=== PATIENT | male | born 1950 | race Caucasian/White ===

== ENCOUNTER 2019-01-11 11:05 | Day surgery (SDC) | payer MEDICARE, MEDICAID ==
[2019-01-11] VITALS (14 sets, daily range): BP systolic 107–162; BP diastolic 65–109
[~2019-01-11] VITALS: Ht 172.7 cm; Wt 125.2 kg
[~2019-01-11 11:05] MED LIST: ATOR40TA PO; BUDE10.22 INH; IBUP-1984 PO; MULT-66 PO; TERA2CAP4 PO
[2019-01-11] MEDS ORDERED: nitroGLYCERIN 0.4mg SUBLingual tab SL PRN (11:25)
[2019-01-11] MEDS ORDERED: normal saline 1,000 ML IV SCH (11:30)
[2019-01-11] MEDS ORDERED: diphenhydrAMINE 25mg capsule PO PRN (11:30)
[2019-01-11] MEDS ORDERED: LORazepam 0.5 MG tablet PO PRN (11:30)
[2019-01-11] MEDS ORDERED: TRAM50TA2 PO (12:13)
[2019-01-11] MEDS ORDERED: APIX5TAB3 PO (12:13)
[2019-01-11] MEDS ORDERED: OMEP20CA10 PO (12:13)
[2019-01-11] MEDS ORDERED: CARV-50 PO (12:13)
[2019-01-11] MEDS ORDERED: DIGO125T PO (12:13)
[2019-01-11] MEDS ORDERED: AMIO200T40 PO (12:13)
[2019-01-11] MEDS ORDERED: META-25 PO (12:13)
[2019-01-11 12:20] LABS: BASOPHILS # (AUTO) 0.1 X10'3 (0-0.2); BASOPHILS % (AUTO) 0.8 % (0-1); EOSINOPHILS # (AUTO) 0.1 X10'3 (0-0.9); EOSINOPHILS % (AUTO) 1.7 % (0-6); HEMATOCRIT 47.8 % (42.0-52.0); HEMOGLOBIN 15.7 g/dl (14.0-17.9); LYMPHOCYTES # (AUTO) 1.2 X10'3 (1.1-4.8); LYMPHOCYTES % (AUTO) 15.4 % (21-51); MEAN CORPUSCULAR HEMOGLOBIN 29.5 PG (27.0-31.0); MEAN CORPUSCULAR HGB CONC 32.9 g/dL (33.0-36.5); MEAN CORPUSCULAR VOLUME 89.6 FL (78-98); MEAN PLATELET VOLUME 8.1 FL (7.4-10.4); MONOCYTES # (AUTO) 0.6 X10'3 (0-0.9); MONOCYTES % (AUTO) 7.9 % (2-12); NEUTROPHILS # (AUTO) 5.7 X10'3 (1.8-7.7); NEUTROPHILS % (AUTO) 74.2 % (42-75); PLATELET COUNT 235 X10'3 (140-440); RED BLOOD COUNT 5.34 X10'6 (4.70-6.10); RED CELL DISTRIBUTION WIDTH 16.7 % (11.5-14.5); WHITE BLOOD COUNT 7.7 X10'3 (4.5-11.0)
[2019-01-11 12:35] LABS: ALBUMIN 3.6 G/DL (3.4-5.0); ANION GAP 9 (8-16); BLOOD UREA NITROGEN 17 MG/DL (7-18); BUN/CREATININE RATIO 23.3 (5.4-32.0); CALCIUM 9.5 MG/DL (8.5-10.1); CHLORIDE 103 MMOL/L (99-107); CREATININE 0.73 MG/DL (0.60-1.10); GLUCOSE 93 MG/DL (70-104); POTASSIUM 4.6 MMOL/L (3.5-5.1); SODIUM 140 MMOL/L (135-145); TOTAL CARBON DIOXIDE 27.8 MMOL/L (24-32); eGFR > 90 ML/MIN
[2019-01-11 12:44] LABS: INR 1.2 INR; PARTIAL THROMBOPLASTIN TIME 31 SECONDS (22-32); PROTHROMBIN TIME 11.6 SECONDS (9.0-12.0)
[2019-01-11] MEDS ORDERED: iohexol 350 MG/ML 50ML vial IV ONE (13:57)
[2019-01-11] MEDS ORDERED: LIDOcaine 1% (10mg/ml)w/preservative injection 20ml MDV ONE (13:57)
[2019-01-11] MEDS ORDERED: iohexol 350MG/ML 100ml bottle IV ONE (13:57)
[2019-01-11] MEDS ORDERED: fentaNYL/PF 50MCG/1 ML 2ML syringe ONE (13:57)
[2019-01-11] MEDS ORDERED: midazolam 2 mg/2 ml injection ONE (13:57)
[2019-01-11] MEDS ORDERED: HYDROcodone/acetaminophen 5mg/325mg tablet PO PRN (16:05)
[2019-01-11] MEDS ORDERED: HYDROcodone/acetaminophen 10/325mg tab PO PRN (16:05)
[2019-01-11] MEDS ORDERED: OXAZEpam 15mg capsule PO PRN (16:05)
[2019-01-11] MEDS ORDERED: ondansetron/PF 4mg/2ml inj IV PRN (16:05)
[2019-01-11] MEDS ORDERED: acetaminophen 325mg tablet PO PRN (16:05)
[2019-01-11] MEDS ORDERED: proCHLORperazine 10 MG/2 ml inj IV PRN (16:05)
== END 2019-01-11 20:00 | disposition home or self-care (01) ==
LOC: SSTAY O 11:05
PROVIDERS: ATTEND Internal Medicine Cardiovascular Disease
DX: I25.10 Atherosclerotic heart disease of native coronary artery without angina pectoris (principal); I42.9 Cardiomyopathy, unspecified; I10 Essential (primary) hypertension; E78.5 Hyperlipidemia, unspecified; Z87.891 Personal history of nicotine dependence; G47.33 Obstructive sleep apnea (adult) (pediatric); Z72.89 Other problems related to lifestyle
CPT/HCPCS: 36415; 71046; 80048; 85025; 85610; 85730; 93005; 93458; 99152; 99153; A6257; J1644; J2001; J2250; J3010; J7030; Q0163; Q9967; A4620; C1760; C1769

== ENCOUNTER 2023-03-09 11:20 | Day surgery (SDC) | payer MEDICARE, MEDICAID ==
[~2023-03-09] VITALS: Ht 172.7 cm; Wt 137.3 kg
[2023-03-09] VITALS (12 sets, daily range): BP systolic 104–182; BP diastolic 38–99
[~2023-03-09 11:20] MED LIST changes: +AMI200T PO; +APIX5TAB3 PO; -BUDE10.22 INH; +CARV-50 PO; +DIGO125T PO; -IBUP-1984 PO; +META-25 PO; -MULT-66 PO; +OMEP20CA15 PO; +TRAM50TA2 PO
[2023-03-09] MEDS ORDERED: fentaNYL/PF 50MCG/1 ML 2ML syringe IV ONE (11:50)
[2023-03-09] MEDS ORDERED: MIDAZolam 1mg/ml 10ml vial IV ONE (11:50)
[2023-03-09] MEDS ORDERED: normal saline 1000ml 1,000 ML IV SCH (11:50)
[2023-03-09] MEDS ORDERED: METF-1203 PO (11:57)
[2023-03-09] MEDS ORDERED: BUDE10.2 (11:57)
[2023-03-09] MEDS ORDERED: HYDR-3972 PO (11:57)
[2023-03-09 12:04] LABS: BASOPHILS % (AUTO) 0.3 % (0-1); EOSINOPHILS # (AUTO) 0.2 X10'3 (0-0.9); HEMATOCRIT 42.4 % (42.0-52.0); HEMOGLOBIN 13.3 g/dl (14.0-17.9); LYMPHOCYTES % (AUTO) 12.8 % (21-51); MEAN CORPUSCULAR HGB CONC 31.3 g/dL (33.0-36.5); MEAN CORPUSCULAR VOLUME 89.3 FL (78-98); MEAN PLATELET VOLUME 7.4 FL (7.4-10.4); MONOCYTES # (AUTO) 0.7 X10'3 (0-0.9); MONOCYTES % (AUTO) 8.6 % (2-12); NEUTROPHILS # (AUTO) 6.1 X10'3 (1.8-7.7); NEUTROPHILS % (AUTO) 76.3 % (42-75); PLATELET COUNT 200 X10'3 (140-440); RED BLOOD COUNT 4.75 X10'6 (4.70-6.10); RED CELL DISTRIBUTION WIDTH 16.8 % (11.5-14.5); WHITE BLOOD COUNT 7.9 X10'3 (4.5-11.0)
[2023-03-09 12:15] LABS: ALBUMIN 3.3 G/DL (3.4-5.0); ANION GAP 8 (8-16); BLOOD UREA NITROGEN 14 MG/DL (7-18); BUN/CREATININE RATIO 17.3 (10.0-20.0); CALCIUM 9.1 MG/DL (8.5-10.1); CHLORIDE 103 MMOL/L (99-107); CREATININE 0.81 MG/DL (0.60-1.10); GLUCOSE 98 MG/DL (70-104); POTASSIUM 4.4 MMOL/L (3.5-5.1); SODIUM 141 MMOL/L (135-145); eGFR > 90 ML/MIN
== END 2023-03-09 15:00 | disposition home or self-care (01) ==
LOC: SSTAY O 11:20
PROVIDERS: ATTEND Student in an Organized Health Care Education/Training Program
DX: I48.91 Unspecified atrial fibrillation (principal); I48.92 Unspecified atrial flutter; E11.9 Type 2 diabetes mellitus without complications; E78.5 Hyperlipidemia, unspecified; I11.0 Hypertensive heart disease with heart failure; I50.22 Chronic systolic (congestive) heart failure; G47.33 Obstructive sleep apnea (adult) (pediatric); J43.9 Emphysema, unspecified; J96.12 Chronic respiratory failure with hypercapnia; J96.11 Chronic respiratory failure with hypoxia; I35.0 Nonrheumatic aortic (valve) stenosis; N40.0 Benign prostatic hyperplasia without lower urinary tract symptoms; G89.29 Other chronic pain; M16.0 Bilateral primary osteoarthritis of hip; Z87.891 Personal history of nicotine dependence; Z79.899 Other long term (current) drug therapy; Z79.01 Long term (current) use of anticoagulants; Z79.82 Long term (current) use of aspirin; F10.20 Alcohol dependence, uncomplicated
CPT/HCPCS: 36415; 80048; 82948; 85025; 85610; 92960; 93005; J2250; J3010; J7030; A4620

== ENCOUNTER 2023-10-27 10:58 | Outpatient (CLI) | payer MEDICARE, MEDICAID ==
[~2023-10-27] VITALS: Ht 172.7 cm; Wt 145.1 kg
[~2023-10-27 10:58] MED LIST changes: +BUDE10.2 PO; -DIGO125T PO; +FLO0.4C PO; +HYDR-3972 PO; +IPRA3AMP9 IH; -META-25 PO; +METF-1203 PO; -OMEP20CA15 PO; +SEMA3TAB4 PO; -TERA2CAP4 PO; -TRAM50TA2 PO
[2023-10-27 11:25] LABS: BASOPHILS % (AUTO) 0.4 % (0-1); EOSINOPHILS # (AUTO) 0.1 X10'3 (0-0.9); EOSINOPHILS % (AUTO) 0.8 % (0-6); HEMATOCRIT 39.2 % (42.0-52.0); HEMOGLOBIN 12.1 g/dl (14.0-17.9); LYMPHOCYTES # (AUTO) 0.7 X10'3 (1.1-4.8); LYMPHOCYTES % (AUTO) 8.7 % (21-51); MEAN CORPUSCULAR HEMOGLOBIN 28.4 PG (27.0-31.0); MEAN CORPUSCULAR HGB CONC 30.8 g/dL (33.0-36.5); MEAN CORPUSCULAR VOLUME 92.4 FL (78-98); MEAN PLATELET VOLUME 8.6 FL (7.4-10.4); MONOCYTES # (AUTO) 0.8 X10'3 (0-0.9); MONOCYTES % (AUTO) 9.7 % (2-12); NEUTROPHILS # (AUTO) 6.8 X10'3 (1.8-7.7); NEUTROPHILS % (AUTO) 80.4 % (42-75); PLATELET COUNT 181 X10'3 (140-440); RED BLOOD COUNT 4.24 X10'6 (4.70-6.10); RED CELL DISTRIBUTION WIDTH 15.8 % (11.5-14.5); WHITE BLOOD COUNT 8.5 X10'3 (4.5-11.0)
[2023-10-27 11:37] LABS: INR 1.5 INR; PROTHROMBIN TIME 16.1 SECONDS (9.0-12.0)
[2023-10-27 11:54] LABS: ALANINE AMINOTRANSFERASE 25 U/L (12-78); ALBUMIN 2.7 G/DL (3.4-5.0); ALBUMIN/GLOBULIN RATIO 0.7 (1.1-1.5); ALKALINE PHOSPHATASE 70 IU/L (46-116); ANION GAP 3 (8-16); ASPARTATE AMINO TRANSFERASE 21 U/L (10-37); BILIRUBIN,TOTAL 0.2 MG/DL (0.1-1.0); BLOOD UREA NITROGEN 23 MG/DL (7-18); BUN/CREATININE RATIO 21.9 (10.0-20.0); CALCIUM 8.2 MG/DL (8.5-10.1); CHLORIDE 107 MMOL/L (99-107); CREATININE 1.05 MG/DL (0.60-1.10); GLUCOSE 124 MG/DL (70-104); POTASSIUM 5.1 MMOL/L (3.5-5.1); PRO BRAIN NATRIURETIC PEPTIDE 655 PG/ML (0-125); SODIUM 141 MMOL/L (135-145); TOTAL CARBON DIOXIDE 31.4 MMOL/L (24-32); TOTAL PROTEIN 6.5 G/DL (6.4-8.2); eGFR 69 ML/MIN
[2023-10-27] MEDS ORDERED: IODIXANOL 320 MG/ML INFUS..BTL 100ML IV ONE (11:58)
[2023-10-27 12:39] LABS: APTT 30 SECONDS (22-32)
[2023-10-27 13:18] LABS: ABG BASE EXCESS 2.8 mmol/L (-2.0-2.0); ABG OXYGEN SATURATION 91.1 % (94-97); ABG PCO2 (T) 57.5 mmHg (35.0-48.0); ABG PH (T) 7.335 (7.340-7.440); ABG PO2 (T) 64.2 mmHg (75.0-100.0); ALLEN'S TEST POSITIVE; FCOHb 0.6 % (0.0-3.9); FHHb 8.8 % (0.0-5.0); FMetHb 0.1 % (0.0-1.5); FO2Hb 90.5 % (94-97); MODE ROOM AIR; TOTAL HEMOGLOBIN 13.2 G/dl (14.0-17.9)
[2023-10-27] MEDS: albuterol 2.5 MG/3 ML nebule NEB ONE (13:43)
[2023-10-27 13:52] VITALS: PULSE 41; RESP 20; O2SAT 88
[2023-11-10] MEDS ORDERED: ALBU18HF2 INH (16:23)
[2023-11-10] MEDS ORDERED: METF-437 PO (16:23)
== END 2023-10-27 23:59 | disposition home or self-care (01) ==
LOC: RAD 10:58
PROVIDERS: ATTEND Internal Medicine Cardiovascular Disease
DX: R91.1 Solitary pulmonary nodule (principal); I70.0 Atherosclerosis of aorta; I51.7 Cardiomegaly; I35.0 Nonrheumatic aortic (valve) stenosis; R06.02 Shortness of breath; I65.29 Occlusion and stenosis of unspecified carotid artery; J90 Pleural effusion, not elsewhere classified; R09.89 Other specified symptoms and signs involving the circulatory and respiratory systems; J98.11 Atelectasis; K76.89 Other specified diseases of liver; K57.90 Diverticulosis of intestine, part unspecified, without perforation or abscess without bleeding; Z96.642 Presence of left artificial hip joint
CPT/HCPCS: 36415; 36600; 71046; 71275; 74174; 75572; 80053; 82803; 83880; 85018; 85025; 85610; 85730; 94060; 94727; 94729; 94760; J3490; Q9967

== ENCOUNTER 2023-11-11 10:00 | Outpatient (CLI) | payer MEDICARE, MEDICAID ==
[~2023-11-11 10:00] MED LIST changes: +ALBU18HF2 INH; -IPRA3AMP9 IH; -METF-1203 PO; +METF-437 PO
== END 2023-11-11 23:59 | disposition home or self-care (01) ==
LOC: TAVR 10:00
PROVIDERS: ATTEND Internal Medicine Cardiovascular Disease
DX: I35.0 Nonrheumatic aortic (valve) stenosis (principal)
CPT/HCPCS: A4628; A6213; A6258